=== PATIENT | male | born 1985 | race American Indian/Alaskan Native ===

== ENCOUNTER 2018-08-05 20:55 | Emergency (ER) | payer OTHER ==
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
--- NOTE | 2018-08-05 21:49 | XRay Report ---
PROCEDURE: XR CHEST 1V AP TECHNIQUE: Chest radiograph single view. HISTORY: mval chest pain COMPARISONS: None . FINDINGS: Heart: Normal. Mediastinum/Vessels: Normal. Lungs/Pleural space: Normal. Bony thorax: No acute osseous abnormality. Life support devices: None. IMPRESSION: No acute cardiopulmonary abnormality. This document is electronically signed by Bipin Bernstein MD., August 05 2018 09:46:38 PM ET
[2018-08-05] MEDS ORDERED: IBUPROFEN PO ONE (22:43)
[2018-08-05] MEDS ORDERED: NORCO 5/325 PO ONE (22:43)
--- NOTE | 2018-08-05 23:06 | Cat Scan Report ---
PROCEDURE: CT CERVICAL SPINE WO CON TECHNIQUE: Computerized tomography of the cervical spine was performed from the skull base to T1 wit hout contrast material. CT DOSE LENGTH PRODUCT: 614.2 mGycm HISTORY: Trauma COMPARISONS: None . FINDINGS: The vertebral body heights and alignment are maintained. No acute fracture or subluxation is seen. IMPRESSION: No acute fracture or subluxation is seen . This document is electronically signed by Silvia Mcleod MD., August 05 2018 11:04:41 PM ET
--- NOTE | 2018-08-05 23:13 | Cat Scan Report ---
PROCEDURE: CT HEAD/BRAIN WO CON TECHNIQUE: Computerized tomography of the head was performed without contrast material. CT DOSE LENGTH PRODUCT: 920.5 mGycm HISTORY: Trauma . Pain. COMPARISONS: None . FINDINGS: Brain: Brain density appears normal. No evidence of intracranial hemorrhage. No parenchymal hemorr arya, mass lesions or mass effect are seen. No abnormal extra-axial fluid collects or masses are see n. Ventricles: Ventricles are normal size and are midline. Bone Windows: No evidence of skull fracture. Paranasal sinuses: Visualized portions are clear.. Mastoid air cells: Clear. IMPRESSION: Negative exam. This document is electronically signed by Yan Godoy MD., August 05 2018 11:11:29 PM ET
[2018-08-05 23:46] VITALS: BP 133/72
== END 2018-08-05 23:46 | disposition home or self-care (01) ==
LOC: ED 20:55
DX: S06.9X9A Unspecified intracranial injury with loss of consciousness of unspecified duration, initial encounter (principal); R07.89 Other chest pain; M54.2 Cervicalgia; Z79.899 Other long term (current) drug therapy; V89.2XXA Person injured in unspecified motor-vehicle accident, traffic, initial encounter; Y93.89 Activity, other specified; Y92.488 Other paved roadways as the place of occurrence of the external cause; Y99.8 Other external cause status
CPT/HCPCS: 70450; 71045; 72125; 93005; 93010; 99284